=== PATIENT | female | born 1940 | race Caucasian/White ===

== ENCOUNTER 2023-07-28 13:06 | Emergency (ER) | payer MEDICARE, OTHER ==
[~2023-07-28] VITALS: Ht 154.9 cm; Wt 52.7 kg
[~2023-07-28 13:06] MED LIST: ASPI325T; LISI10TA4; METO50TA4
[2023-07-28 14:10] LABS: BASO % 0.5 % (0.0-1.0); EOS % 0.2 % (0.0-3.0); HEMATOCRIT 42.3 % (36.0-47.0); HEMOGLOBIN 14.3 g/dl (12.0-15.5); LYMPH # 1.2 10^3/uL (1.5-5.0); LYMPH % 20.6 % (24.0-44.0); MEAN CORPUSCULAR HEMOGLOBIN 29.4 pg (27.0-33.0); MEAN CORPUSCULAR HGB CONC 33.8 g/dl (32.0-36.5); MONO # 0.4 10^3/uL (0.0-0.8); MONO % 7.2 % (2.0-8.0); NEUTROPHILS # 4.1 10^3/uL (1.5-8.5); NEUTROPHILS % 71.3 % (36.0-66.0); PLATELET COUNT, AUTOMATED 181 10^3/uL (150-450); RED BLOOD COUNT 4.86 10^6/uL (4.00-5.40); WHITE BLOOD COUNT 5.7 10^3/uL (4.0-10.0)
[2023-07-28 14:22] LABS: INR 1.03; PROTHROMBIN TIME 13.2 SECONDS (12.5-14.5)
[2023-07-28 14:23] LABS: PARTIAL THROMBOPLASTIN TIME 38.2 SECONDS (24.8-34.2)
[2023-07-28 15:16] LABS: ALBUMIN 3.6 G/DL (3.2-5.2); ALKALINE PHOSPHATASE 223 U/L (46-116); ALT/SGPT 52 U/L (7.0-40); AST/SGOT 61 U/L (<34); BILIRUBIN,DIRECT 0.2 MG/DL (<0.4); BILIRUBIN,TOTAL 0.7 MG/DL (0.3-1.2); BLOOD UREA NITROGEN 21 MG/DL (9-23); CALCIUM LEVEL 9.2 MG/DL (8.3-10.6); CARBON DIOXIDE LEVEL 25 MMOL/L (20-31); CHLORIDE LEVEL 96 MMOL/L (98-107); CREATININE FOR GFR 0.78 MG/DL (0.55-1.30); GLOMERULAR FILTRATION RATE > 60.0 (>32); GLUCOSE, FASTING 97 MG/DL (74-106); POTASSIUM SERUM 4.5 MMOL/L (3.5-5.1); SODIUM LEVEL 128 MMOL/L (136-145); TOTAL PROTEIN 7.6 G/DL (5.7-8.2)
[2023-07-28 15:17] LABS: FREE T4 1.55 NG/DL (0.89-1.76)
[2023-07-28 15:18] LABS: THYROID STIMULATING HORMONE 0.377 uIU/ML (0.55-4.78)
[2023-07-28 16:57] LABS: OSMOLALITY SERUM 278 MOSM/KG (280-301)
[2023-07-28 18:06] LABS: CREATININE,RANDOM URINE 63.2 MG/DL
[2023-07-28] MEDS ORDERED: SERO1TAB3 PO (18:09)
[2023-07-28] MEDS ORDERED: QUEtiapine FUMARATE 25 MG TAB PO ONE (18:15)
[2023-07-28 18:24] VITALS: BP 192/82; TEMP 97; O2SAT 98
[2023-07-28] MEDS ORDERED: OCUVTAB8 PO (18:27)
[2023-07-28] MEDS ORDERED: MAGN400T2 PO (18:27)
[2023-07-28] MEDS ORDERED: POVI5DRO OU (18:27)
[2023-07-28] MEDS ORDERED: METO1TAB7 PO (18:27)
[2023-07-28] MEDS ORDERED: CALTAB PO (18:29)
[2023-07-28] MEDS ORDERED: HOME MED LIST COMPLETE! XX SCH (18:30)
== END 2023-07-28 23:45 | disposition home or self-care (01) ==
LOC: M ED 13:06
DX: E87.1 Hypo-osmolality and hyponatremia (principal); G25.71 Drug induced akathisia; I44.4 Left anterior fascicular block; I45.10 Unspecified right bundle-branch block; I10 Essential (primary) hypertension; E78.5 Hyperlipidemia, unspecified; Z87.891 Personal history of nicotine dependence; Z79.899 Other long term (current) drug therapy

== ENCOUNTER → 2023-08-01 | Outpatient (CLI) | payer OTHER ==
[~2023-08-01] MED LIST changes: +CALTAB PO; +MAGN400T2 PO; +METO1TAB7 PO; +OCUVTAB8 PO; +POVI5DRO OU; +SERO1TAB3 PO
== END ==
LOC: M PLARAD 09:10
PROVIDERS: ATTEND Student in an Organized Health Care Education/Training Program
DX: G20.C Parkinsonism, unspecified (principal)

== ENCOUNTER 2024-06-19 22:27 | Emergency (ER) | payer OTHER ==
[~2024-06-19] VITALS: Ht 154.9 cm; Wt 55.5 kg
[2024-06-19] MEDS: IPRATROPIUM 0.5MG/ALBUTEROL 2.5MG INH SOL UD 3ML (DUONEB) NEB ONE ×3 (23:12→23:43)
[2024-06-19 23:18] LABS: BASO % 0.2 % (0.0-1.0); EOS # 0.1 10^3/uL (0.0-0.5); EOS % 0.7 % (0.0-3.0); HEMATOCRIT 41.5 % (36.0-47.0); HEMOGLOBIN 13.7 g/dl (12.0-15.5); LYMPH # 1.1 10^3/uL (1.5-5.0); LYMPH % 12.5 % (24.0-44.0); MEAN CORPUSCULAR HEMOGLOBIN 28.2 pg (27.0-33.0); MEAN CORPUSCULAR VOLUME 85.6 fl (80.0-96.0); MONO # 0.7 10^3/uL (0.0-0.8); MONO % 7.9 % (2.0-8.0); NEUTROPHILS # 7.1 10^3/uL (1.5-8.5); NEUTROPHILS % 78.1 % (36.0-66.0); PLATELET COUNT, AUTOMATED 203 10^3/uL (150-450); RED BLOOD COUNT 4.85 10^6/uL (4.00-5.40); WHITE BLOOD COUNT 9.1 10^3/uL (4.0-10.0)
[2024-06-19] MEDS ORDERED: BUPR150T12 PO (23:20)
[2024-06-19] MEDS ORDERED: DEUT24TA PO (23:20)
[2024-06-19] MEDS: FAMOTIDINE 20MG/2ML VIAL IVP ONE (23:27)
[2024-06-19] MEDS: methylPREDNISolone 125MG 2ML VIAL IV ONE (23:27)
[2024-06-19 23:44] LABS: ALBUMIN 2.9 G/DL (3.2-5.2); ALKALINE PHOSPHATASE 564 U/L (35-104); ALT/SGPT 88 U/L (7.0-40); AST/SGOT 62 U/L (<34); BILIRUBIN,DIRECT 0.3 MG/DL (<0.4); BILIRUBIN,TOTAL 0.8 MG/DL (0.3-1.2); BLOOD UREA NITROGEN 23 MG/DL (9-23); CALCIUM LEVEL 8.9 MG/DL (8.3-10.6); CARBON DIOXIDE LEVEL 23 MMOL/L (20-31); CHLORIDE LEVEL 98 MMOL/L (98-107); CK-MB VALUE MASS 4.2 NG/ML (<3.6); CREATININE FOR GFR 0.62 MG/DL (0.55-1.30); GLOMERULAR FILTRATION RATE > 60.0 (>32); GLUCOSE, FASTING 100 MG/DL (74-106); POTASSIUM SERUM 4.7 MMOL/L (3.5-5.1); SODIUM LEVEL 128 MMOL/L (136-145)
[2024-06-19 23:51] LABS: CPK CREATINE PHOSPHOKINASE 60 U/L (34-145)
[2024-06-20] MEDS ORDERED: PRED10TA2 PO (01:36)
[2024-06-20] MEDS ORDERED: AZIT-12 PO (01:38)
[2024-06-20] MEDS: AZITHROMYCIN 250MG TABLET PO ONE (01:47)
[2024-06-20 01:48] VITALS: BP 174/84; TEMP 98; O2SAT 92
== END 2024-06-20 02:04 | disposition home or self-care (01) ==
LOC: M ED 22:27
DX: J44.1 Chronic obstructive pulmonary disease with (acute) exacerbation (principal); J06.9 Acute upper respiratory infection, unspecified; I45.10 Unspecified right bundle-branch block; I10 Essential (primary) hypertension; F32.A Depression, unspecified; Z79.2 Long term (current) use of antibiotics; Z79.899 Other long term (current) drug therapy; Z79.52 Long term (current) use of systemic steroids
CPT/HCPCS: 71045; 80048; 80076; 82550; 82553; 83880; 84484; 85025; 87486; 87581; 87633; 87798; 93005; 93041; 94640; 94760; 96374; 99285; J2919